=== PATIENT | male | born 1970 | race Hispanic/Latino ===

== ENCOUNTER 2017-08-07 14:03 | Inpatient (IN) | payer OTHER ==
[~2017-08-07] VITALS: Ht 182.9 cm; Wt 137.5 kg
[2017-08-07] MEDS ORDERED: ASPIRIN 81 MG CHEW TAB PO ONE (14:30)
[2017-08-07 14:48] LABS: BASOPHILS % 0.4 % (0.0-1.0); EOSINOPHILS # (AUTO) 0.1 (0.0-0.4); EOSINOPHILS % 0.7 % (0.0-6.0); HEMATOCRIT 47.3 % (38.2-49.6); HEMOGLOBIN 15.8 g/dL (14.0-18.0); LYMPHOCYTES # (AUTO) 1.6 (1.0-3.2); LYMPHOCYTES % 19.1 % (18.0-39.1); MEAN CORPUSCULAR HEMOGLOBIN 27.7 pg (28-32); MEAN CORPUSCULAR HGB CONC 33.4 g/dL (31-35); MEAN CORPUSCULAR VOLUME 82.8 fL (81-99); MONOCYTES # (AUTO) 0.4 (0.2-0.8); MONOCYTES % 4.2 % (4.4-11.3); NEUTROPHILS # (AUTO) 6.4 (2.1-6.9); NEUTROPHILS % 75.1 % (38.7-80.0); PLATELET COUNT 191 x10e3/uL (140-360); RED BLOOD COUNT 5.71 x10e6/uL (4.3-5.7); RED CELL DISTRIBUTION WIDTH 14.1 % (11.7-14.4)
[2017-08-07 14:58] LABS: INR 1.09; PROTHROMBIN TIME 13.3 seconds (11.9-14.5)
[2017-08-07 14:59] LABS: PARTIAL THROMBOPLASTIN TIME 27.4 seconds (23.8-35.5)
[2017-08-07 15:06] LABS: ALANINE AMINOTRANSFERASE 46 IU/L (0-55); ALBUMIN/GLOBULIN RATIO 1.1 (0.8-2.0); ALKALINE PHOSPHATASE 86 IU/L (40-150); ANION GAP 13.1 mmol/L (8-16); BLOOD UREA NITROGEN 12 mg/dL (7-26); BUN/CREATININE RATIO 15 (6-25); CALCIUM 9.4 mg/dL (8.4-10.2); CARBON DIOXIDE 25 mmol/L (22-29); CHLORIDE 105 mmol/L (98-107); CREATINE KINASE 209 IU/L (30-200); CREATININE, SERUM 0.81 mg/dL (0.72-1.25); EST GLOMERULAR FILTRATION RATE > 60 ML/MIN (60-); GLUCOSE 166 mg/dL (74-118); POTASSIUM 3.1 mmol/L (3.5-5.1); SODIUM 140 mmol/L (136-145)
[2017-08-07] MEDS ORDERED: SODIUM CHLORIDE 0.9% 50ML 50 ML ONE (15:22)
[2017-08-07] MEDS ORDERED: IOPAMIDOL 370 MG/ML 200 ML INFUS..BTL INJ ONE (15:22)
[2017-08-07 15:28] LABS: THYROID STIMULATING HORMONE 0.755 uIU/mL (0.350-4.940)
[2017-08-07] MEDS ORDERED: KETOROLAC TROMETHAMINE 30 MG/ML VIAL IV STA (16:04)
--- NOTE | 2017-08-07 16:09 | Diagnostic Imaging Report ---
History:Left-sided weakness Comparison studies: None Technique: Axial images were obtained from the skull base to the vertex. Coronal and sagittal reconstructions obtained from the axial data. Findings: Scalp/skull: No abnormalities. No fractures, blastic or lytic lesions. Extra-axial spaces: No masses. No fluid collections. Brain sulci: Appropriate for age. Ventricles: Normal in size and configuration. No hydrocephalus. Parenchyma: No abnormal densities. No masses, hemorrhage, acute or chronic cortical vascular insults. Sellar/suprasellar region: No abnormalities Craniocervical junction: Patent foramen magnum. No Chiari one malformation. IMPRESSION: No abnormalities . Signed by: DR Sotero Manrique M.D. on 08/07/2017 4:05 PM
--- NOTE | 2017-08-07 16:16 | Diagnostic Imaging Report ---
EXAM: CTA OF THE THORACIC AORTA INDICATION: \S\r/o dissection \[id number] \S\1528 COMPARISON: None. TECHNIQUE: Multi-detector CT technology was employed. CTA Gated axial imaging of the chest was performed after the administration of IV contrast. IV CONTRAST: 100 mL of Isovue-370 ORAL CONTRAST: None COMPLICATIONS: None RADIATION DOSE: Total DLP: 1195.3 mGy*cm Estimated effective dose: (DLP x 0.015 x size factor) mSv CTDIvol has been reviewed. It is below the limits set by the Radiation Protocol Committee (RPC). For optimization of anatomic evaluation, multiplanar reconstruction, maximum intensity projections, and advanced 3-D off-line postprocessing were performed on a dedicated stand-alone workstation under the direct supervision of the interpreting physician. FINDINGS: Potential study limitations: None. LINES/ TUBES: None. VASCULAR WITH ADVANCED 3-D OFF-LINE POSTPROCESSING: Aortic valve morphology is trileaflet and contains no calcifications. The thoracic aorta is normal in course, caliber, and contour. There is no acute aortic pathology, such as dissection, intramural hematoma, or contained rupture. Aortic plaques: None. The arch vessel branching pattern is conventional. All of the arch branch vessels appear widely patent in their proximal portions. Batch Operator dimensions of the thoracic aorta are as follows: 2.4 cm at the aortic annulus 3.5 x 3.5 cm at the sinuses of Valsalva (the sinotubular junction is preserved) 3.5 cm at the mid ascending aorta 3.5 cm at the distal ascending aorta 2.6 cm at the mid transverse arch 2.4 cm at the proximal descending thoracic aorta 2.5 cm at the diaphragmatic hiatus. LUNGS AND AIRWAYS: Minimal atelectasis in both lung bases. Airways are patent. PLEURA: The pleural spaces are clear. HEART AND MEDIASTINUM: The thyroid gland is normal. No mediastinal, hilar or axillary lymphadenopathy. The main pulmonary artery is mildly prominent measuring 3.1 cm. The cardiac chambers demonstrate normal atrioventricular and ventriculoarterial concordance, and systemic and pulmonary venous return. The cardiac chambers are normal in size. The coronary arteries have normal origins and courses. There are mild coronary calcifications identified in the proximal LAD, though this study was not optimized for coronary artery evaluation. There is no pericardial effusion. LIMITED ABDOMEN: Diffuse hepatic steatosis. BONES: Mild multilevel degenerative changes of the thoracic spine. IMPRESSION: 1. Normal thoracic aorta. There is no acute aortic pathology. 2. Small calcified plaque in the proximal LAD. 3. Prominent main pulmonary artery measuring up to 3.1 cm with normal RV size, nonspecific finding. 4. Minimal atelectasis in both lung bases, otherwise, lungs are clear. Signed by: Dr. Eva Santo M.D. on 08/07/2017 4:12 PM
--- NOTE | 2017-08-07 17:20 | Diagnostic Imaging Report ---
PROCEDURE: A single AP view of the chest. COMPARISON: [facility], CT, CTA CHEST, 08/07/2017, 15:28. INDICATIONS: LEFT ARM NUMBNESS, SHORTNESS OF BREATH FINDINGS: Lines/tubes: None. Lungs: The lungs are well inflated. There is no evidence of consolidation. Mild perihilar interstitial opacities Pleura: There is no pleural effusion or pneumothorax. Heart and mediastinum: Cardiac silhouette is unremarkable. Mild central pulmonary venous congestion. Bones: No acute bony abnormality. IMPRESSION: 1. mild central pulmonary venous congestion and perihilar interstitial edema. Jim Palm M.D. Dictated by: Jim Palm M.D. on 08/07/2017 at 17:21 Electronically approved by: Jim Palm M.D. on 08/07/2017 at 17:21
[2017-08-07] MEDS ORDERED: NITROGLYCERIN 0.4 MG SUBL SL PRN (18:00)
[2017-08-07] MEDS ORDERED: ONDANSETRON HCL INJ 2 MG/ML VIAL IV PRN (18:00)
[2017-08-07] MEDS ORDERED: ONDANSETRON HCL 4 MG ORAL DISINTEGRATING TAB PO PRN (18:15)
[2017-08-07] MEDS: FAMOTIDINE 20 MG TAB PO SCH (18:15)
[2017-08-07] MEDS ORDERED: LORAZEPAM 1 MG TAB PO ONE (18:30)
--- OUTSIDE RECORDS SUMMARY | 2017-08-07 18:43 | XMS REPORT ---
Author Author [facility] Address Unknown Phone Unavailable Care Team Providers Care Nut And Bolt Assembler Name Role Phone DUDLEY MCKEON Unavailable Unavailable Problems This patient has no known problems. Allergies, Adverse Reactions, Alerts This patient has no known allergies or adverse reactions. Medications This patient has no known medications. Results Test Description Test Time Test Comments Text Results Atomic Results Result Comments CT BRAIN WO [place] [address] Patient Name: LILLIAN DIAS MR #: [id number] : 1970 Age/Sex: 46/M Req #: [id number] Adm Physician: Ordered by: DUDLEY MCKEON MD Report #: [id number] Location: ER Room/Bed: Procedure: [id number] CT/CT BRAIN WO Exam Date: 08/07/17 Exam Time: 1524 REPORT STATUS: Signed History:Left-sided weakness Comparison studies: None Technique: Axial images were obtained from the skull base to the vertex. Coronal and sagittal reconstructions obtained from the axial data. Findings: Scalp/skull: No abnormalities. No fractures, blastic or lytic lesions. Extra-axial spaces: No masses. No fluid collections. Brain sulci: Appropriate for age. Ventricles: Normal in size and configuration. No hydrocephalus. Parenchyma: No abnormal densities. No masses, hemorrhage, acute or chronic cortical vascular insults. Sellar/suprasellar region: No abnormalities Craniocervical junction: Patent foramen magnum. No Chiari one malformation. IMPRESSION: No abnormalities . Signed by: DR Sotero Manrique M.D. on 2017 4:05 PM Dictated By: SOTERO CLANCY MD 1605 Transcribed By: ZENIA on 08/07/17 1605 COPY TO: DUDLEY MCKEON MD CTA CHEST [place] [address] Patient Name: LILLIAN DIAS MR #: [id number] : 1970 Age/Sex: 46/M Req #: [id number] Adm Physician: Ordered by: JAZZ LEACH NP Report #: [id number] Location: ER Room/Bed: Procedure: [id number] CT/CTA CHEST Exam Date: 08/07/17 Exam Time: 1528 REPORT STATUS: Signed EXAM: CTA OF THE THORACIC AORTA INDICATION: COMPARISON: None. TECHNIQUE: Multi-detector CT technology was employed. CTA Gated axial imaging of the chest was performed after the administration of IV contrast. IV CONTRAST: 100 mL of Isovue-370 ORAL CONTRAST: None COMPLICATIONS: None RADIATION DOSE: Total DLP: 1195.3 mGy*cm Estimated effective dose: (DLP x 0.015 x size factor) mSv CTDIvol has been reviewed. It is below the limits set by the Radiation Protocol Committee (RPC). For optimization of anatomic evaluation, multiplanar reconstruction , maximum intensity projections, and advanced 3-D off-line postprocessing were performed on a dedicated stand-alone workstation under the direct supervision of the interpreting physician. FINDINGS: Potential study limitations: None. LINES/ TUBES: None. VASCULAR WITH ADVANCED 3- D OFF-LINE POSTPROCESSING: Aortic valve morphology is trileaflet and contains no calcifications. The thoracic aorta is normal in course, caliber, and contour. There is no acute aortic pathology, such as dissection, intramural hematoma, or contained rupture. Aortic plaques: None. The arch vessel branching pattern is conventional. All of the arch branch vessels appear widely patent in their proximal portions. Transit Planning Manager dimensions of the thoracic aorta are as follows: 2.4 cm at the aortic annulus 3.5 x 3.5 cm at the sinuses of Valsalva (the sinotubular junction is preserved) 3.5 cm at the mid ascending aorta 3.5 cm at the distal ascending aorta 2.6 cm at the mid transverse arch 2.4 cm at the proximal descending thoracic aorta 2.5 cm at the diaphragmatic hiatus. LUNGS AND AIRWAYS: Minimal atelectasis in both lung bases. Airways are patent. PLEURA: The pleural spaces are clear. HEART AND MEDIASTINUM: The thyroid gland is normal. No mediastinal, hilar or axillary lymphadenopathy. The main pulmonary artery is mildly prominent measuring 3.1 cm. The cardiac chambers demonstrate normal atrioventricular and ventriculoarterial concordance, and systemic and pulmonary venous return. The cardiac chambers are normal in size. The coronary arteries have normal origins and courses. There are mild coronary calcifications identified in the proximal LAD, though this study was not optimized for coronary artery evaluation. There is no pericardial effusion. LIMITED ABDOMEN: Diffuse hepatic steatosis. BONES: Mild multilevel degenerative changes of the thoracic spine. IMPRESSION: 1. Normal thoracic aorta. There is no acute aortic pathology. 2. Small calcified plaque in the proximal LAD. 3. Prominent main pulmonary artery measuring up to 3.1 cm with normal RV size, nonspecific finding. 4. Minimal atelectasis in both lung bases, otherwise , lungs are clear. Signed by: Dr. Gabino Turk M.D. on 08/07/2017 4:12 PM Dictated By: GABINO TURK MD 11 Transcribed By: ZENIA on 08/07/17 161 COPY TO: JAZZ LEACH NP CHEST [facility] (PORTABLE) [place] [address] Patient Name: LILLIAN DIAS MR #: [id number] : 1970 Age/Sex: 46/M Req #: [id number] [facility] Physician: Ordered by: JAZZ LEACH OXYGRAPH OPERATOR Report #: [id number] Location: ER Room/Bed: Procedure: [id number] DX/CHEST SINGLE (PORTABLE) Exam Date: 08/07/17 Exam Time: 1607 REPORT STATUS: Signed PROCEDURE: A single AP view of the chest. COMPARISON: Patients [facility], CT, CTA CHEST, 08/07/2017, 15:28. INDICATIONS: LEFT ARM NUMBNESS, SHORTNESS OF BREATH FINDINGS: Lines/tubes: None. Lungs: The lungs are well inflated. There is no evidence of consolidation. Mild perihilar interstitial opacities Pleura: There is no pleural effusion or pneumothorax. Heart and mediastinum: Cardiac silhouette is unremarkable. Mild central pulmonary venous congestion. Bones: No acute bony abnormality. IMPRESSION: 1. mild central pulmonary venous congestion and perihilar interstitial edema. Ang Palm M.D. Dictated by: Ang Palm M.D. on 08/07/2017 at 17:21 Electronically approved by : Ang Palm M.D. on 08/07/2017 at 17:21 Dictated By: ANG PALM MD 20 Transcribed By: JASMYN on 08/07/17 172 COPY TO: JAZZ LEACH NP
[2017-08-07 20:40] VITALS: BP 122/74
[2017-08-07 20:42] LABS: CREATINE KINASE 175 IU/L (30-200)
[2017-08-07 21:00] VITALS: BP 122/74
[2017-08-07] MEDS ORDERED: HYZAAR 100-251 EACH PO (21:52)
[2017-08-07] MEDS ORDERED: METOPROLOL SUCC50 MG PO (21:52)
[2017-08-07] MEDS ORDERED: AMLODIPINE BESY10 MG PO (21:52)
[2017-08-07] MEDS: MORPHINE SULFATE 2 MG/ML SYR IV PRN (22:24)
[2017-08-07] MEDS ORDERED: POTASSIUM CHLORIDE 10 MEQ TABCR PO ONE (23:15)
[2017-08-08] VITALS (7 sets, daily range): BP systolic 108–150; BP diastolic 63–87
[2017-08-08 06:25] LABS: BASOPHILS % 0.2 % (0.0-1.0); EOSINOPHILS # (AUTO) 0.2 (0.0-0.4); EOSINOPHILS % 2.2 % (0.0-6.0); HEMATOCRIT 45.4 % (38.2-49.6); HEMOGLOBIN 14.9 g/dL (14.0-18.0); LYMPHOCYTES # (AUTO) 2.2 (1.0-3.2); LYMPHOCYTES % 27.5 % (18.0-39.1); MEAN CORPUSCULAR HEMOGLOBIN 28.1 pg (28-32); MEAN CORPUSCULAR HGB CONC 32.8 g/dL (31-35); MEAN CORPUSCULAR VOLUME 85.5 fL (81-99); MONOCYTES # (AUTO) 0.9 (0.2-0.8); MONOCYTES % 10.8 % (4.4-11.3); NEUTROPHILS # (AUTO) 4.8 (2.1-6.9); NEUTROPHILS % 58.9 % (38.7-80.0); PLATELET COUNT 187 x10e3/uL (140-360); RED BLOOD COUNT 5.31 x10e6/uL (4.3-5.7); RED CELL DISTRIBUTION WIDTH 14.5 % (11.7-14.4)
[2017-08-08 06:50] LABS: ANION GAP 10.4 mmol/L (8-16); BLOOD UREA NITROGEN 15 mg/dL (7-26); BUN/CREATININE RATIO 16 (6-25); CALCIUM 9.1 mg/dL (8.4-10.2); CARBON DIOXIDE 29 mmol/L (22-29); CHLORIDE 106 mmol/L (98-107); CHOL/HDL RATIO 6.3 (3.9-4.7); CHOLESTEROL 201 MD/DL (0-199); CREATINE KINASE 155 IU/L (30-200); CREATININE, SERUM 0.93 mg/dL (0.72-1.25); EST GLOMERULAR FILTRATION RATE > 60 ML/MIN (60-); GLUCOSE 104 mg/dL (74-118); HDL CHOLESTEROL 32 MG/DL (40-60); LDL CHOLESTEROL 131 MG/DL (60-130); POTASSIUM 3.4 mmol/L (3.5-5.1); SODIUM 142 mmol/L (136-145); TRIGLYCERIDES 190 MG/DL (0-149)
[2017-08-08 07:36] LABS: CLARITY,URINE SL CLOUDY (CLEAR); COLOR,URINE YELLOW (YELLOW); PROTEIN,URINE DIPSTICK 2+ (NEGATIVE)
[2017-08-08 07:37] LABS: BILIRUBIN,URINE NEGATIVE (NEGATIVE); KETONES,URINE NEGATIVE (NEGATIVE); LEUKOCYTE ESTERASE ,URINE NEGATIVE (NEGATIVE); NITRITE,URINE NEGATIVE (NEGATIVE); URINE UROBILINOGEN 0.2 mg/dL (0.2 - 1)
[2017-08-08 07:59] LABS: EPITHELIAL CELLS,URINE RARE /LPF; MUCUS,URINE RARE (RARE); WBC,URINE (MAN) 0-5 /HPF (0-5)
[2017-08-08] MEDS: AMLODIPINE BESYLATE 10 MG TAB PO SCH (07:59)
[2017-08-08] MEDS: FAMOTIDINE 20 MG TAB PO SCH ×2 (07:59→17:24)
[2017-08-08] MEDS: ASPIRIN 81 MG ENTERIC COATED PO SCH (07:59)
[2017-08-08] MEDS: MORPHINE SULFATE 2 MG/ML SYR IV PRN ×2 (07:59→20:38)
[2017-08-08] MEDS: METOPROLOL SUCCINATE 50 MG TAB XL PO SCH (08:00)
--- NOTE | 2017-08-08 08:01 | History and Physical ---
PRIMARY CARE PHYSICIAN: Dr. João Newsome CHIEF COMPLAINT: Dizziness, left arm numbness and weakness. HISTORY OF PRESENT ILLNESS: This is a 46-year-old man with a history of hypertension, now developing left-sided weakness and dizziness. He states that his dizziness started yesterday. He had left arm numbness, weakness and left shoulder pain. He had left-sided shoulder pain. He had a headache at the back of the head radiating to the eyes. No vomiting. No diarrhea. No other symptoms. No history of stroke. No family history of stroke. PAST MEDICAL HISTORY: Hypertension. PAST SURGICAL HISTORY: None. ALLERGIES: PER ELECTRONIC MEDICAL RECORD. FAMILY HISTORY: No history of stroke. SOCIAL HISTORY: Patient is . He has 2 children. No alcohol, illicits or cigarettes. 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 MEDICATIONS: Per electronic medical record. REVIEW OF SYSTEMS: Denies any shortness of breath or leg pain. PHYSICAL EXAMINATION VITAL SIGNS: Reviewed. GENERAL: A tired-appearing man resting in bed. HEENT: Anicteric. CARDIOVASCULAR: Normal S1 and S2. LUNGS: Moderate breath sounds. ABDOMEN: Soft, nontender and nondistended. EXTREMITIES: No edema or calf tenderness. NEUROLOGICAL: Alert and oriented times 3. Moving all extremities. He has no focal deficits. He has no visual field deficits. Motor strength is 5/5 in all extremities, except the left arm, which is 4/5. He does have left anterior shoulder pain with motor testing of the left arm. SKIN: Dry. PSYCHIATRIC: Flat affect. LABS: Reviewed. MEDICATIONS: Reviewed. ASSESSMENT AND PLAN: A 46-year-old man with: 1. Musculoskeletal left arm pain: Will treat empirically. Likely bicep tendon related pathology. 2. Rule out acute stroke: Computerized tomography scan is negative. Will obtain an MRI of the brain to further evaluate. Also, obtain MRI of the head and neck. 3. Hypokalemia: Replace and recheck. 4. Morbid obesity: Body mass index is 44. He also has hyperglycemia: Will screen for diabetes. 5. Hyperglycemia: Screen for diabetes. 6. Hyperlipidemia: His LDL is 131. His triglycerides are 190. Will treat empirically with statin medication. 7. Hypertension: Restart home medications. 8. Prophylaxis: Will use Lovenox and Pepcid. 9. Disposition: MRI of the head and neck. Physical therapy consultation. Possible ultrasound of the carotids. Likely, symptoms are due to bicep tendonitis or bicep tendon pathology. Will obtain MRI to rule out acute stroke. Job#: [id number] RI
[2017-08-08] MEDS ORDERED: POTASSIUM CHLORIDE 20 MEQ TAB CR PO ONE (09:10)
[2017-08-08] MEDS ORDERED: LORAZEPAM 1 MG TAB PO SCH (11:15)
[2017-08-08] MEDS: LOSARTAN POTASSIUM 100 MG TAB PO SCH (12:52)
[2017-08-08] MEDS: HYDROCHLOROTHIAZIDE 25 MG TAB PO SCH (12:53)
[2017-08-08] MEDS: ENOXAPARIN SOD INJ 40 MG/0.4 ML SYR SC SCH (17:24)
[2017-08-08] MEDS: SIMVASTATIN 20 MG TAB PO SCH (20:38)
--- NOTE | 2017-08-08 22:08 | Consultation ---
DATE OF CONSULTATION: August 08, 2017 HISTORY OF PRESENT ILLNESS: Mr. Brady is a 46-year-old right-hand dominant man with past medical history significant for hypertension and prediabetes, admitted to [facility] on July 08, 2017, for evaluation and treatment of headache and associated neurological deficits. On the afternoon of July 08, 2017, the patient was working from home when he experienced the sudden onset of diaphoresis, blurred vision affecting both eyes, left arm and foot tingling with left hemiparesis, nausea with dry heaves, unsteady gait, mild dysarthria, expressive aphasia, and confusion/disorientation. These symptoms occurred in the presence of a headache which is described as follows: The pain begins over the right occiput and radiates through the skull to behind the right eye. The pain is described as throbbing and "lots of pressure." Mr. Brady rates the pain at 8 to 9/10. Associated with the headache are photophobia and phonophobia. Following the sudden onset of the above symptoms, Mr. Brady contacted his who returned to their home and then drove him to the emergency center at [facility] for further evaluation. Upon admission to the emergency center, the patient was afebrile with a blood pressure of 150/80 mmHg with a pulse of 85 beats per minute. The patient's neurological examination was documented as follows: Alert. Oriented times 3. Mood/affect normal. Speech normal. Cranial nerves normal (as tested). Finger-nose test mildly abnormal on the left. No motor deficits. No sensory deficits. A CT of the brain without contrast was performed while the patient was in the emergency Center. There was no evidence of recent large territorial ischemia or hemorrhage. Mr. Brady was admitted to [facility] under observation status for further evaluation and treatment of his symptoms. The patient reports experiencing similar symptoms 2 days prior to admission. However, symptoms were less severe in their intensity. At present, the patient endorses a mild headache as described above, left arm numbness and weakness, tingling of the left foot, and an unsteady gait. Mr. Brady does not have a prior history of headaches. REVIEW OF SYSTEMS: Shortness of breath, nausea, confusion, blurred vision, dysarthria, expressive aphasia, weakness of the left arm and leg, tingling of the left arm and left foot, impairment of balance and gait, headache, photophobia, phonophobia. Otherwise, a 12-point review of systems is negative. PAST MEDICAL HISTORY: Hypertension, prediabetes, morbid obesity. PAST SURGICAL HISTORY: Appendectomy as a child. PAST HOSPITALIZATIONS: Surgeries/procedures listed, blood transfusion during adolescence. FAMILY HISTORY: The patient's paternal and maternal grandparents are . Their medical histories are unknown. The patient's father is alive and healthy. His mother is alive and has hypertension. Mr. Brady reports having 1 brother and 2 sisters, all of whom are alive and healthy. The patient has a twin daughters who are healthy. SOCIAL HISTORY: Mr. Brady is . He graduated from high school and attended 2 years of college. 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 The patient does not report current or prior tobacco, alcohol, or recreational drug use. HOME MEDICATIONS 1. Amlodipine besylate 10 mg by mouth daily. 2. Losartan/hydrochlorothiazide 100-125 mg by mouth daily. 3. Metoprolol ER 100 mg by mouth daily. HOSPITAL MEDICATIONS: Amlodipine besylate, Lovenox, Pepcid, hydrochlorothiazide, losartan, metoprolol, morphine sulfate, nitroglycerin, Zofran and Zocor. ALLERGIES: NO KNOWN DRUG ALLERGIES. NO KNOWN FOOD ALLERGIES. NO KNOWN ALLERGIES TO LATEX. NO KNOWN ALLERGIES TO IODINE OR OTHER CONTRAST MATERIALS. PHYSICAL EXAMINATION VITAL SIGNS: Height 72 inches, weight 300 pounds, BMI 40.7 kg/m sq. Blood pressure 134/72 mmHg, pulse 92 beats per minute, respiratory rate 19 breaths per minute, oxygen saturation 98% on 2 L by nasal cannula. GENERAL: The patient is awake and alert, does not appear distressed. Obese. HEENT: Normocephalic, atraumatic. Pupils are equal, round and reactive to light. Moist mucous membranes. NECK: Supple. No appreciable thyromegaly. No appreciable carotid bruits. CARDIOVASCULAR: S1, S2, regular rate and rhythm. No murmurs, rubs or gallops. RESPIRATORY: Clear to auscultation bilaterally. No wheezes, rhonchi or rales. EXTREMITIES: Skin is warm and dry. No clubbing, cyanosis, or edema. The posterior tibial and dorsalis pedis pulses are 2+ and symmetric. SKIN: No rashes or lesions. NEUROLOGIC MEMORY/ATTENTION: The patient is awake and alert, oriented to person, place, time, and situation. CRANIAL NERVES: Cranial nerve I-not tested. Cranial nerves II, III, IV, and -pupils are equal and round, react briskly to light (from 4 mm to 2 mm), extraocular movements intact, no nystagmus. Cranial nerve V-sensation to light touch and pinprick is diminished over the left V1 through V3 distributions. Strength of the temporalis and masseter muscles is within normal limits. Cranial nerve VII-the face is symmetric as are all facial movements. Strength is within normal limits. Cranial nerve VIII-hearing is diminished to finger rub on the right. Cranial nerves IX, X-the soft palate elevates equally and symmetrically. Cranial nerve XI-normal strength of the bilateral sternocleidomastoid and trapezius muscles. Cranial nerve XII-the tongue protrudes in midline and moves symmetrically from side to side. STRENGTH: Bulk is normal. Strength is 5/5 in the right deltoid, biceps, triceps, wrist flexors and extensors, finger flexors and extensors, intrinsic hand muscles, hip flexors, knee flexors and extensors, ankle dorsiflexion and plantarflexion, and intrinsic foot muscles. Strength is as follows for the left arm and leg: Deltoid 4/5, biceps 4/5, triceps 4-/5, wrist flexors 4/5, wrist extensors 4-/5, finger flexors 4/5, finger extensors 4-/5, hip flexors4-/5, knee flexors 4-/5, knee extensors 4/5, ankle dorsiflexion 4-/5, ankle plantarflexion 4/5. Tone is normal. DTRs: Deep tendon reflexes are 2+ at the triceps, biceps, brachioradialis, patella, and Achilles. Deep tendon reflexes are 3+ at the left triceps, biceps, brachioradialis, and patella. Deep tendon reflexes are 2+ at the left Achilles. Plantar responses are flexor bilaterally. Absent clonus. SENSATION: Sensation is diminished to light touch and pinprick over the left arm and left leg. CEREBELLAR: Hawvhk-lwud-taxzrd and heel-logan movements are intact without dysmetria or other impairment. Rapid alternating movements are intact. GAIT: Deferred. SPEECH: Spontaneous, speech is normal without appreciable dysarthria or aphasia. Repetition is intact. INVOLUNTARY MOVEMENTS: None. PRONATOR DRIFT: Left arm. LABORATORY DATA: Sodium 142, potassium 3.4, chloride 106, carbon dioxide 29, anion gap 10.4, BUN 15, creatinine 0.93, estimated GFR greater than 60, BUN to creatinine ratio 16, glucose 104 and calcium 9.1. Total bilirubin 0.8, AST 21, ALT 46, alkaline phosphatase 86. Total protein 7.5, albumin 4.0, globulin 3.5, albumin to globulin ratio 1.1. CK 209, 175, 155. CK-MB 2.50, 2.60, 1.70. Troponin I less than 0.001, less than 0.001, less than 0.001. TSH 0.755, hemoglobin A1c 5.7. Total cholesterol 201, triglycerides 190, LDL cholesterol 131, HDL cholesterol 32. CBC with differential and platelets reveals a white blood cell count of 8.15 with normal differentials. The hemoglobin and hematocrit are 14.9 to 45.4, respectively. The platelet count is 187,000. PT of 13.2, INR 1.09, PTT 27.4. Urinalysis revealed slightly cloudy urine with specific gravity of 1.030 and 2+ protein. DIAGNOSTIC STUDIES: CT of the brain without contrast August 07, 2017: On my review, there is no evidence of recent large territorial ischemia, hemorrhage, mass or mass affect. ASSESSMENT AND PLAN: Mr. Brady is a 46-year-old right-hand dominant man with vascular risk factors who presents to [facility] with either a subcortical ischemic stroke in the right middle cerebral artery distribution or a complex migraine with status migrainosus. The patient's neurological examination is significant for left hemiparesis affecting the arm and leg, brisk deep tendon reflexes over the left arm and left leg, diminished sensation to light touch and pinprick over the left hemibody (face, arm and leg). The patient's laboratory data and diagnostic studies have been reviewed and are documented above. As stated above, the patient's differential diagnosis includes a subcortical ischemic stroke in the right middle cerebral artery distribution versus a complex migraine with status migrainosus. In order to determine which diagnosis is correct, the patient must undergo a MRI of the brain without contrast. Unfortunately, Mr. Brady has severe claustrophobia and was unable to undergo an MRI of the brain earlier today despite sedation. A consultation to anesthesiology will be made so that the MRI of the brain and MRA of the brain and neck may be performed under sedation. As stated above, it is vital this study be performed because it will dictate further evaluation and treatment for this patient. Thank you for this consultation. I will continue to follow this patient while he remains in the hospital. TIME SPENT: 50 minutes. Job#: [id number] [facility]ITALPolly
[2017-08-09] VITALS (8 sets, daily range): BP systolic 98–148; BP diastolic 46–89
[2017-08-09] MEDS: ASPIRIN 81 MG ENTERIC COATED PO SCH (08:48)
[2017-08-09] MEDS: FAMOTIDINE 20 MG TAB PO SCH ×2 (08:48→16:46)
[2017-08-09] MEDS: HYDROCHLOROTHIAZIDE 25 MG TAB PO SCH (08:48)
[2017-08-09] MEDS: AMLODIPINE BESYLATE 10 MG TAB PO SCH (08:48)
[2017-08-09] MEDS: METOPROLOL SUCCINATE 50 MG TAB XL PO SCH (08:49)
[2017-08-09] MEDS: MORPHINE SULFATE 2 MG/ML SYR IV PRN (14:59)
[2017-08-09] MEDS: ENOXAPARIN SOD INJ 40 MG/0.4 ML SYR SC SCH (16:46)
[2017-08-09] MEDS: LOSARTAN POTASSIUM 100 MG TAB PO SCH (16:46)
[2017-08-09] MEDS ORDERED: ACETAMINOPHEN 325 MG TAB PO PRN (17:30)
[2017-08-09] MEDS ORDERED: HYDROCODONE/APAP 5MG-325MG TAB PO PRN (17:45)
[2017-08-09] MEDS: SIMVASTATIN 20 MG TAB PO SCH (21:07)
[2017-08-10] VITALS (8 sets, daily range): BP systolic 103–139; BP diastolic 55–70
[2017-08-10 07:41] LABS: BASOPHILS % 0.3 % (0.0-1.0); EOSINOPHILS # (AUTO) 0.1 (0.0-0.4); EOSINOPHILS % 1.8 % (0.0-6.0); HEMATOCRIT 49.2 % (38.2-49.6); LYMPHOCYTES # (AUTO) 2.1 (1.0-3.2); LYMPHOCYTES % 29.4 % (18.0-39.1); MEAN CORPUSCULAR HEMOGLOBIN 27.4 pg (28-32); MEAN CORPUSCULAR HGB CONC 32.5 g/dL (31-35); MEAN CORPUSCULAR VOLUME 84.1 fL (81-99); MONOCYTES # (AUTO) 0.7 (0.2-0.8); MONOCYTES % 9.4 % (4.4-11.3); NEUTROPHILS # (AUTO) 4.2 (2.1-6.9); NEUTROPHILS % 58.7 % (38.7-80.0); PLATELET COUNT 185 x10e3/uL (140-360); RED BLOOD COUNT 5.85 x10e6/uL (4.3-5.7)
[2017-08-10 07:59] LABS: ANION GAP 11.6 mmol/L (8-16); BLOOD UREA NITROGEN 10 mg/dL (7-26); BUN/CREATININE RATIO 12 (6-25); CALCIUM 9.4 mg/dL (8.4-10.2); CARBON DIOXIDE 30 mmol/L (22-29); CHLORIDE 101 mmol/L (98-107); CREATININE, SERUM 0.85 mg/dL (0.72-1.25); EST GLOMERULAR FILTRATION RATE > 60 ML/MIN (60-); GLUCOSE 105 mg/dL (74-118); MAGNESIUM 1.8 MG/DL (1.3-2.1); POTASSIUM 3.6 mmol/L (3.5-5.1); SODIUM 139 mmol/L (136-145)
[2017-08-10] MEDS: METOPROLOL SUCCINATE 50 MG TAB XL PO SCH (09:50)
[2017-08-10] MEDS: LOSARTAN POTASSIUM 100 MG TAB PO SCH (09:50)
[2017-08-10] MEDS: HYDROCHLOROTHIAZIDE 25 MG TAB PO SCH (09:50)
[2017-08-10] MEDS: FAMOTIDINE 20 MG TAB PO SCH ×2 (09:50→17:56)
[2017-08-10] MEDS: ASPIRIN 81 MG ENTERIC COATED PO SCH (09:50)
[2017-08-10] MEDS: AMLODIPINE BESYLATE 10 MG TAB PO SCH (09:50)
[2017-08-10] MEDS ORDERED: MIDAZOLAM HCL 2 MG/2 ML VIAL ONE ×2 (11:48→11:49)
[2017-08-10] MEDS ORDERED: FENTANYL CITRATE/PF 100MCG/2 ML INJ ONE ×2 (11:48→11:49)
[2017-08-10] MEDS ORDERED: CYCLOBENZAPRINE5 MG PO (12:01)
[2017-08-10] MEDS ORDERED: IBUPROFEN600 MG PO (12:01)
[2017-08-10] MEDS ORDERED: SIMVASTATIN20 MG PO (12:01)
[2017-08-10] MEDS ORDERED: SODIUM CHLORIDE 0.9% 500ML 500 ML ONE (13:35)
[2017-08-10] MEDS ORDERED: METHYLPREDNISOLONE SOD SUCC 125 MG/2ML VIAL IV NR (16:15)
[2017-08-10] MEDS ORDERED: VALPROATE SOD INJ 500 MG in SODIUM CHLORIDE 0.9% 100 ML 100 ML IV SCH (16:30)
[2017-08-10] MEDS ORDERED: PROMETHAZINE 12.5MG/ NACL 0.9% 12.5 MG/50 ML BAG IV ONE (16:30)
[2017-08-10] MEDS ORDERED: CYCLOBENZAPRINE HCL 10 MG TAB PO PRN (17:30)
[2017-08-10] MEDS: ENOXAPARIN SOD INJ 40 MG/0.4 ML SYR SC SCH (17:56)
--- NOTE | 2017-08-10 18:58 | Diagnostic Imaging Report ---
History: Left sided weakness Comparison studies: Same day CT head Technique: Pre-contrast: Sagittal T2; axial T1-IR, MPGR, DWI, T2 FLAIR. Post-contrast: axial and coronal T1. 2-D cervical and 3-D intracranial pyyg-er-uapdrs MRA's . Intravenous contrast: None Findings: Brain: Scalp: No abnormal signal. No masses. Bone marrow: Normal in signal intensity. Brain sulci: Mildly prominent . Ventricles: Normal in size . No hydrocephalus. Parenchyma: No abnormal signal intensities. No masses, hemorrhage, acute or chronic vascular insults. Suprasellar region: No abnormalities. Craniocervical junction: No abnormalities. Patent foramen magnum. No Chiari one malformation. Vessels: Normal flow-voids in the arteries and sinuses. Cervical MRA: Carotid arteries: No flow abnormalities . Vertebral arteries: No flow abnormalities . Intracranial MRA: Internal carotid arteries: No flow abnormalities . Hypoplastic left A1. Vertebrobasilar circulation: No flow abnormalities . Anatomical variants: Acom: Visualized. Pcoms: Visualized on the left . Vertebral arteries: Dominant left origin. IMPRESSION: Brain: 1. Normal Cervical and intracranial MRAs: 1. Normal Signed by: DR Sotero Manrique M.D. on 08/10/2017 6:54 PM
--- NOTE | 2017-08-10 18:58 | Diagnostic Imaging Report ---
History: Left sided weakness Comparison studies: Same day CT head Technique: Pre-contrast: Sagittal T2; axial T1-IR, MPGR, DWI, T2 FLAIR. Post-contrast: axial and coronal T1. 2-D cervical and 3-D intracranial [id number] MRA's . Intravenous contrast: None Findings: Brain: Scalp: No abnormal signal. No masses. Bone marrow: Normal in signal intensity. Brain sulci: Mildly prominent . Ventricles: Normal in size . No hydrocephalus. Parenchyma: No abnormal signal intensities. No masses, hemorrhage, acute or chronic vascular insults. Suprasellar region: No abnormalities. Craniocervical junction: No abnormalities. Patent foramen magnum. No Chiari one malformation. Vessels: Normal flow-voids in the arteries and sinuses. Cervical MRA: Carotid arteries: No flow abnormalities . Vertebral arteries: No flow abnormalities . Intracranial MRA: Internal carotid arteries: No flow abnormalities . Hypoplastic left A1. Vertebrobasilar circulation: No flow abnormalities . Anatomical variants: Acom: Visualized. Pcoms: Visualized on the left . Vertebral arteries: Dominant left origin. IMPRESSION: Brain: 1. Normal Cervical and intracranial MRAs: 1. Normal Signed by: DR Sotero Manrique M.D. on 08/10/2017 6:54 PM
--- NOTE | 2017-08-10 18:58 | Diagnostic Imaging Report ---
History: Left sided weakness Comparison studies: Same day CT head Technique: Pre-contrast: Sagittal T2; axial T1-IR, MPGR, DWI, T2 FLAIR. Post-contrast: axial and coronal T1. 2-D cervical and 3-D intracranial [id number] MRA's . Intravenous contrast: None Findings: Brain: Scalp: No abnormal signal. No masses. Bone marrow: Normal in signal intensity. Brain sulci: Mildly prominent . Ventricles: Normal in size . No hydrocephalus. Parenchyma: No abnormal signal intensities. No masses, hemorrhage, acute or chronic vascular insults. Suprasellar region: No abnormalities. Craniocervical junction: No abnormalities. Patent foramen magnum. No Chiari one malformation. Vessels: Normal flow-voids in the arteries and sinuses. Cervical MRA: Carotid arteries: No flow abnormalities . Vertebral arteries: No flow abnormalities . Intracranial MRA: Internal carotid arteries: No flow abnormalities . Hypoplastic left A1. Vertebrobasilar circulation: No flow abnormalities . Anatomical variants: Acom: Visualized. Pcoms: Visualized on the left . Vertebral arteries: Dominant left origin. IMPRESSION: Brain: 1. Normal Cervical and intracranial MRAs: 1. Normal Signed by: DR Sotero Manrique M.D. on 08/10/2017 6:54 PM
[2017-08-10] MEDS: SIMVASTATIN 20 MG TAB PO SCH (20:52)
[2017-08-10] MEDS ORDERED: VALPROATE SOD INJ 500 MG in SODIUM CHLORIDE 0.9% 100 ML IV PRN (22:00)
[2017-08-11] VITALS (7 sets, daily range): BP systolic 107–130; BP diastolic 56–71
[2017-08-11 07:10] LABS: BASOPHILS % 0.1 % (0.0-1.0); HEMATOCRIT 48.9 % (38.2-49.6); HEMOGLOBIN 16.6 g/dL (14.0-18.0); LYMPHOCYTES # (AUTO) 1.6 (1.0-3.2); MEAN CORPUSCULAR HGB CONC 33.9 g/dL (31-35); MEAN CORPUSCULAR VOLUME 82.5 fL (81-99); MONOCYTES # (AUTO) 0.4 (0.2-0.8); NEUTROPHILS % 79.4 % (38.7-80.0); PLATELET COUNT 217 x10e3/uL (140-360); RED BLOOD COUNT 5.93 x10e6/uL (4.3-5.7); RED CELL DISTRIBUTION WIDTH 13.6 % (11.7-14.4)
[2017-08-11] MEDS: FAMOTIDINE 20 MG TAB PO SCH ×2 (07:30→16:41)
[2017-08-11 07:40] LABS: ANION GAP 12.8 mmol/L (8-16); BLOOD UREA NITROGEN 15 mg/dL (7-26); BUN/CREATININE RATIO 17 (6-25); CARBON DIOXIDE 27 mmol/L (22-29); CHLORIDE 97 mmol/L (98-107); CREATININE, SERUM 0.87 mg/dL (0.72-1.25); EST GLOMERULAR FILTRATION RATE > 60 ML/MIN (60-); GLUCOSE 135 mg/dL (74-118); POTASSIUM 3.8 mmol/L (3.5-5.1); SODIUM 133 mmol/L (136-145)
[2017-08-11] MEDS: HYDROCHLOROTHIAZIDE 25 MG TAB PO SCH (09:00)
[2017-08-11] MEDS: LOSARTAN POTASSIUM 100 MG TAB PO SCH (09:11)
[2017-08-11] MEDS: ASPIRIN 81 MG ENTERIC COATED PO SCH (09:11)
[2017-08-11] MEDS: AMLODIPINE BESYLATE 10 MG TAB PO SCH (09:12)
[2017-08-11] MEDS: METOPROLOL SUCCINATE 50 MG TAB XL PO SCH (09:12)
[2017-08-11] MEDS: ENOXAPARIN SOD INJ 40 MG/0.4 ML SYR SC SCH (16:41)
--- NOTE | 2017-08-12 00:12 | Discharge Summary ---
DATE OF : 1970 PRIMARY CARE PHYSICIAN: Dr. Ever Newsome ADMITTING DIAGNOSES 1. Complex migraine with Suraj's paralysis. 2. Hypertension. 3. Hyperlipidemia. DISCHARGE DIAGNOSES 1. Complex migraine with Suraj's paralysis. 2. Hypertension. 3. Hyperlipidemia. BRIEF HISTORY: Mr. Brady is a 46-year-old gentleman presenting with a severe headache, migraine in nature with weakness of the left arm and leg and numbness as well of the left arm, leg, and foot. HOSPITAL COURSE: The patient was admitted to the hospital. His imaging was negative. He was seen by neurology, who felt that he had a complex migraine with Suraj's paralysis. It was resolving during his hospital stay. The patient was ambulating well at the time of discharge, still with only very mild residual weakness in the left arm and leg, but certainly improving. He was instructed to resume his regular diet and activity to resume his regular medications and he can return to work in a week after he has completely recovered. He can follow up with his PCP within 2 weeks. ZAYRA DODD MD Job#: [id number] CQ
== END 2017-08-11 19:50 | disposition home or self-care (01) | DRG 103 ==
LOC: ER 14:03 → ERHOLD 18:40 → IMCU 20:13 → OBSVTOIN 08-09 16:44 → MED/SURG 08-09 17:41
PROVIDERS: ADMIT Internal Medicine; ATTEND Internal Medicine
DX: G43.109 Migraine with aura, not intractable, without status migrainosus (principal); Z68.41 Body mass index [BMI] 40.0-44.9, adult; G83.84 Todd's paralysis (postepileptic); I10 Essential (primary) hypertension; E78.5 Hyperlipidemia, unspecified; E87.6 Hypokalemia; E86.0 Dehydration; E66.01 Morbid (severe) obesity due to excess calories; R06.83 Snoring; E11.65 Type 2 diabetes mellitus with hyperglycemia
CPT/HCPCS: 36415; 70450; 70544; 70547; 70551; 71045; 71275; 80048; 80053; 80061; 81001; 82550; 82553; 83036; 83735; 84443; 84484; 85025; 85610; 85730; 87086; 93005; 93306; 99284; G0378; J1650; J1885; J2250; J2270; J2550; J2930; J7040; J7050; Q9967